=== PATIENT | male | born 1945 | race Caucasian/White ===

== ENCOUNTER → 2024-04-01 | Outpatient (CLI) | payer OTHER, MEDICAID, SELFPAY ==
[2024-04-01 10:46] LABS: Basophils # (Auto) 0.1 Thou/mm3 (0.0-0.2); Basophils % (Auto) 0 % (0-2.5); Eosinophils # (Auto) 0.4 Thou/mm3 (0.0-0.5); Eosinophils % (Auto) 2 % (0-10); Hematocrit 42.5 % (41.0-53.0); Hemoglobin 13.8 g/dL (13.5-16.0); Immature Granulocytes % (Auto) 0 % (0-0); Lymphocytes # (Auto) 19.1 Thou/mm3 (1.0-4.8); Lymphocytes % (Auto) 76 % (10-50); Mean Corpuscular HGB Conc 32.5 g/dl (31.0-37.0); Mean Corpuscular Hemoglobin 30.3 pg (25.0-35.0); Mean Corpuscular Volume 93 fL (80-100); Monocytes # (Auto) 0.7 Thou/mm3 (0.0-0.8); Monocytes % (Auto) 3 % (0-12); Neutrophils # (Auto) 4.7 Thou/mm3 (1.8-7.7); Neutrophils % (Auto) 19 % (37-80); Nucleated Red Blood Cell % 0 /100 WBC (0); Platelet Count 193 Thou/mm3 (140-440); RDW Standard Deviation 49.7 fL (35.1-43.9); Red Blood Count 4.56 Miln/mm3 (4.50-5.90)
[2024-04-01 11:06] LABS: Alanine Aminotransferase 35 U/L (10-49); Albumin, Serum 4.5 gm/dL (3.4-4.8); Alkaline Phosphatase 104 U/L (46-116); Anion Gap 3 (7-16); Aspartate Amino Transferase 34 U/L (0-34); BUN/Creatinine Ratio 18 Ratio (12-20); Bilirubin,Total 0.9 mg/dL (0.3-1.2); Blood Urea Nitrogen 21 mg/dL (9-23); Calcium 9.7 mg/dL (8.3-10.6); Calcium (Corrected) 9.7 mg/dL (8.5-10.1); Carbon Dioxide 35.6 mMol/L (20.0-31.0); Chloride 99 mMol/L (98-107); Creatinine (Component) 1.2 mg/dL (0.6-1.3); Globulin 2.2 gm/dL (2.3-3.5); Glucose 125 mg/dL (74-106); Osmolality,Calculated 279 (275-295); Potassium 3.2 mMol/L (3.4-5.1); Sodium 138 mMol/L (136-145); Total Protein 6.7 gm/dL (5.7-8.2); eGFR > 60 See Note
== END | disposition home or self-care (01) ==
LOC: COPL 09:10
PROVIDERS: PCP Family Medicine; Referring Provider Specialist; Visit Provider Specialist
DX: C91.10 Chronic lymphocytic leukemia of B-cell type not having achieved remission (principal)
CPT/HCPCS: 36415; 80053; 85025

== ENCOUNTER → 2024-07-07 | Outpatient (CLI) | payer MEDICARE, SELFPAY ==
[2024-07-07 09:36] LABS: Basophils # (Auto) 0.1 Thou/mm3 (0.0-0.2); Basophils % (Auto) 0 % (0-2.5); Eosinophils # (Auto) 0.3 Thou/mm3 (0.0-0.5); Eosinophils % (Auto) 1 % (0-10); Hematocrit 41.2 % (41.0-53.0); Hemoglobin 13.4 g/dL (13.5-16.0); Immature Granulocytes % (Auto) 0 % (0-0); Immature Granulocytes Auto 0.08 Thou/mm3 (0.00-0.00); Lymphocytes # (Auto) 15.8 Thou/mm3 (1.0-4.8); Lymphocytes % (Auto) 72 % (10-50); Mean Corpuscular HGB Conc 32.5 g/dl (31.0-37.0); Mean Corpuscular Hemoglobin 29.7 pg (25.0-35.0); Mean Corpuscular Volume 91 fL (80-100); Monocytes # (Auto) 0.7 Thou/mm3 (0.0-0.8); Monocytes % (Auto) 3 % (0-12); Neutrophils # (Auto) 5.1 Thou/mm3 (1.8-7.7); Neutrophils % (Auto) 23 % (37-80); Nucleated Red Blood Cell % 0 /100 WBC (0); Platelet Count 184 Thou/mm3 (140-440); RDW Standard Deviation 48.7 fL (35.1-43.9); Red Blood Count 4.51 Miln/mm3 (4.50-5.90); White Blood Count 22.1 Thou/mm3 (3.8-10.6)
[2024-07-07 11:11] LABS: Path Review Blood Smear Sent to Pathologist
== END | disposition home or self-care (01) ==
LOC: COPL 08:47
PROVIDERS: PCP Family Medicine; Referring Provider Specialist; Visit Provider Specialist
DX: C91.10 Chronic lymphocytic leukemia of B-cell type not having achieved remission (principal)
CPT/HCPCS: 36415; 85025

== ENCOUNTER 2024-09-28 09:53 | Day surgery (SDC) | payer MEDICARE, MEDICAID, SELFPAY ==
[2024-09-27 10:04] LABS: Basophils # (Auto) 0.1 Thou/mm3 (0.0-0.2); Basophils % (Auto) 1 % (0-2.5); Eosinophils # (Auto) 0.3 Thou/mm3 (0.0-0.5); Eosinophils % (Auto) 2 % (0-10); Hematocrit 42.8 % (41.0-53.0); Hemoglobin 13.8 g/dL (13.5-16.0); Immature Granulocytes % (Auto) 0 % (0-0); Immature Granulocytes Auto 0.06 Thou/mm3 (0.00-0.00); Lymphocytes # (Auto) 12.6 Thou/mm3 (1.0-4.8); Lymphocytes % (Auto) 68 % (10-50); Mean Corpuscular HGB Conc 32.2 g/dl (31.0-37.0); Mean Corpuscular Hemoglobin 29.1 pg (25.0-35.0); Mean Corpuscular Volume 90 fL (80-100); Monocytes # (Auto) 0.6 Thou/mm3 (0.0-0.8); Monocytes % (Auto) 3 % (0-12); Neutrophils # (Auto) 4.7 Thou/mm3 (1.8-7.7); Neutrophils % (Auto) 26 % (37-80); Nucleated Red Blood Cell % 0 /100 WBC (0); Platelet Count 166 Thou/mm3 (140-440); RDW Standard Deviation 48.2 fL (35.1-43.9); Red Blood Count 4.74 Miln/mm3 (4.50-5.90); White Blood Count 18.4 Thou/mm3 (3.8-10.6)
[2024-09-27 10:31] LABS: INR 1.1 (0.9-1.3); Partial Thromboplastin Time 27.3 Seconds (22.0-36.0); Prothrombin Time 11.9 Seconds (9.0-12.2)
[2024-09-27 11:15] LABS: Anion Gap 11 (7-16); BUN/Creatinine Ratio 16 Ratio (12-20); Blood Urea Nitrogen 19 mg/dL (9-23); Calcium 9.2 mg/dL (8.3-10.6); Carbon Dioxide 31.9 mMol/L (20.0-31.0); Chloride 99 mMol/L (98-107); Creatinine (Component) 1.2 mg/dL (0.6-1.3); Glucose 157 mg/dL (74-106); Osmolality,Calculated 288 (275-295); Potassium 3.4 mMol/L (3.4-5.1); Sodium 142 mMol/L (136-145); eGFR > 60 See Note
[2024-09-28] VITALS (19 sets, daily range): BP systolic 115–170; BP diastolic 60–120; PULSE 72–95; RESP 14–20; TEMP 36.6–36.8; O2SAT 93–98
[2024-09-28] MEDS: LOSARTAN POTASSIUM 25 MG TABLET 100 MG PO (14:49)
[2024-09-28] MEDS: METOPROLOL TARTRATE 25 MG TABLET 50 MG PO (14:49)
--- NOTE | 2024-09-28 19:34 | PC.NURSE ---
1355 patient is awake, alert, breathing unlabored, s/p LHC with PCI, dressing to right groin dry with no bleeding or hematoma, arterial sheath has been removed in laboratory coordinator OR. Report received from Jourdan KHAN, patient to recover for 5 hours. Ok to continue aspirin and plavix tomorrow, stop eliquis. Metoprolol and losartan home medications order by MD to give now post procedure in laboratory coordinator. 1511 Carol Ann (daughter) called pharmacy, plavix has been delivered to patient's house by pharmacy 4 days ago. Patient aware he needs to start taking plavix and aspirin 81mg tomorrow. 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
--- NOTE | 2024-10-01 13:08 | ESOP_ITS ---
RE: SHILA PHILLIP : 1945 DATE OF OPERATION: 09/28/2024 PROCEDURE PERFORMED: 1. Diagnostic left heart cardiac catheterization, selective coronary angiogram, left ventricular angiogram, bypass graft angiogram, CPT 70757. 2. Selective cannulation of internal mammary artery, CPT 24935. 3. PCI/PTCA stent placement of proximal left circumflex artery, placement of drug-eluting stent 4.0 x 15 mm [place], Medtronic stent, preprocedure stenosis 95% and postprocedure stenosis 0%, CPT 62939. 4. Conscious sedation, 1 hour duration. 5. Ultrasound-guided access, right femoral artery. DIAGNOSES: Coronary artery disease, status post bypass graft surgery, recurrent chest pain, shortness of breath, and abnormal nuclear stress test. HISTORY AND INDICATIONS: The patient is an 79-year-old male with a past medical history of coronary artery disease, status post bypass graft surgery, hypertension, has been having recurrent shortness of breath with chest pain, cardiac stress test with nuclear scan showed inferolateral ischemia, hence coronary angiogram was recommended to assess the patient is a candidate for intervention and revascularization. DESCRIPTION OF PROCEDURE: The patient was brought to cardiac catheterization laboratory where he was given 2 mg of Versed for sedation. Right femoral approach was taken. Right femoral artery was cannulated by micropuncture technique and 6-Finnish sheath was introduced. Selective right and left coronary angiogram performed by technique, FR4 and FL4 diagnostic catheter. Left internal mammary artery angiogram performed by FR4 diagnostic catheter. Left ventricular angiogram performed. Subsequently, vein bypass graft to the RCA cannulated by FR4 diagnostic catheter. Bypass graft angiogram performed. The patient tolerated the procedure well. No complications. Coronary angiogram showed following findings. Right coronary artery is large and dominant showed evidence of mild to moderate plaque in the proximal and mid segment. Distal vessel appears unremarkable. There is a graft to distal PDA appears to be widely patent. Vein graft is patent. Left coronary artery system. Left main coronary artery is normal. Left anterior descending artery occluded in the mid and proximal segment. Distal left anterior descending artery is visualized by CARDENSA. CARDENAS to LAD is widely patent with excellent filling of mid and distal left anterior descending artery. Left circumflex artery, [place] vessel, does not have any grafts showed a 95% stenosis of the proximal circumflex artery, culprit lesion. Cardiac catheterization showed following findings. Left ventricular pressure 163/5, EDP 19, aortic pressure 160/70. No gradient across the aortic valve. Left ventricular angiogram showed evidence of normal left ventricular wall motion, ejection fraction of 55%. Following diagnostic procedures, intervention was undertaken. The left main coronary artery was cannulated using 6-Finnish JL4 guiding catheter. The patient was given IV heparin. ACT was therapeutic. The patient was also loaded with aspirin and Brilinta. PTCA of the circumflex artery was performed using 0.014 run-through guidewire to cross the lesion. Euphora 2.5 x 12 mm balloon was used to cross the lesion. Subsequently, pre-dilation was performed by 2.5 mm balloon. Subsequently, a 4.0 x 15 mm length Medtronic Murray stent was deployed. The patient was given 600 mg of Plavix loading dose and aspirin was given prior to the procedure. Iliofemoral angiogram performed. Angioseal was attempted, failed to deploy, hence 30 mg protamine was given. Manual compression was obtained. Hemostasis was secured. The patient had no complications. SUMMARY OF FINDINGS: Severe multivessel coronary artery disease, evidence of widely patent graft to the posterior descending artery vein graft and also widely patent CARDENAS to LAD. [place] circumflex artery showed 95% stenosis, underwent successful stent placement with drug-eluting stent, 4.0 x 15 mm Medtronic Murray stent deployed successfully. Preprocedure stenosis was 95% and postprocedure stenosis was 0%, preprocedure MATHEW flow 2 and postprocedure MATHEW flow 3. No complications. Manual compression applied to secure hemostasis. DT: 10:01:30 TT: 11:45:00 Ref: [id number] - TID: [id number]
== END 2024-09-28 19:22 | disposition home or self-care (01) ==
PROVIDERS: PCP Family Medicine; Referring Provider Internal Medicine Cardiovascular Disease; Visit Provider Internal Medicine Cardiovascular Disease
PROC: (CPT 93459; principal; 2024-09-28 11:30)
DX: I25.119 Atherosclerotic heart disease of native coronary artery with unspecified angina pectoris (principal); Z95.1 Presence of aortocoronary bypass graft; I10 Essential (primary) hypertension; Z01.810 Encounter for preprocedural cardiovascular examination
CPT/HCPCS: 93459; 36216; C9600; 36415; 80048; 85025; 85347; 85610; 85730; 99152; 99153; A4649; A4699; C1725; C1760; C1769; C1874; C1887; C1894; J0171; J0360; J0461; J1643; J2250; J2310; J2371; J2720; J3010; J3490; Q9967; A9270; J1920

== ENCOUNTER → 2024-10-07 | Outpatient (CLI) | payer MEDICARE, MEDICAID, SELFPAY ==
[2024-10-07 09:42] LABS: Basophils # (Auto) 0.1 Thou/mm3 (0.0-0.2); Basophils % (Auto) 0 % (0-2.5); Eosinophils # (Auto) 0.4 Thou/mm3 (0.0-0.5); Eosinophils % (Auto) 2 % (0-10); Hematocrit 40.3 % (41.0-53.0); Hemoglobin 13.2 g/dL (13.5-16.0); Immature Granulocytes % (Auto) 0 % (0-0); Immature Granulocytes Auto 0.08 Thou/mm3 (0.00-0.00); Lymphocytes # (Auto) 13.1 Thou/mm3 (1.0-4.8); Lymphocytes % (Auto) 74 % (10-50); Mean Corpuscular HGB Conc 32.8 g/dl (31.0-37.0); Mean Corpuscular Hemoglobin 29.7 pg (25.0-35.0); Mean Corpuscular Volume 91 fL (80-100); Monocytes # (Auto) 0.7 Thou/mm3 (0.0-0.8); Monocytes % (Auto) 4 % (0-12); Neutrophils # (Auto) 3.5 Thou/mm3 (1.8-7.7); Neutrophils % (Auto) 19 % (37-80); Nucleated Red Blood Cell % 0 /100 WBC (0); Platelet Count 189 Thou/mm3 (140-440); RDW Standard Deviation 49.1 fL (35.1-43.9); Red Blood Count 4.45 Miln/mm3 (4.50-5.90); White Blood Count 17.8 Thou/mm3 (3.8-10.6)
[2024-10-07 09:43] LABS: Glucose Estimated Average 140 mg/dL (80-131); Hemoglobin A1C 6.5 % Hgb (4.8-6.0)
[2024-10-07 09:51] LABS: Anion Gap 10 (7-16); BUN/Creatinine Ratio 16 Ratio (12-20); Blood Urea Nitrogen 19 mg/dL (9-23); Calcium 9.6 mg/dL (8.3-10.6); Carbon Dioxide 32.3 mMol/L (20.0-31.0); Cardiac Risk Estimate 5.9 RATIO (4.0-6.7); Chloride 100 mMol/L (98-107); Cholesterol 148 mg/dL (132-200); Creatinine (Component) 1.2 mg/dL (0.6-1.3); Glucose 98 mg/dL (74-106); HDL Cholesterol 25 mg/dL (40-60); LDL Cholesterol,Calculated 50 mg/dL (0-130); Osmolality,Calculated 285 (275-295); Potassium 3.3 mMol/L (3.4-5.1); Sodium 142 mMol/L (136-145); Triglycerides 365 mg/dL (30-150); eGFR > 60 See Note
== END | disposition home or self-care (01) ==
LOC: COPL 08:27
PROVIDERS: PCP Family Medicine; Referring Provider Specialist; Visit Provider Specialist
DX: C91.10 Chronic lymphocytic leukemia of B-cell type not having achieved remission (principal); E11.42 Type 2 diabetes mellitus with diabetic polyneuropathy; I25.10 Atherosclerotic heart disease of native coronary artery without angina pectoris
CPT/HCPCS: 36415; 80048; 80061; 82043; 82570; 83036; 85025

== ENCOUNTER → 2025-01-03 | Outpatient (CLI) | payer MEDICARE, MEDICAID, SELFPAY ==
[2025-01-03 09:00] LABS: Basophils # (Auto) 0.1 Thou/mm3 (0.0-0.2); Basophils % (Auto) 1 % (0-2.5); Eosinophils # (Auto) 0.4 Thou/mm3 (0.0-0.5); Eosinophils % (Auto) 2 % (0-10); Hematocrit 42.3 % (41.0-53.0); Hemoglobin 13.5 g/dL (13.5-16.0); Immature Granulocytes Auto 0.04 Thou/mm3 (0.00-0.00); Lymphocytes # (Auto) 12.8 Thou/mm3 (1.0-4.8); Lymphocytes % (Auto) 75 % (10-50); Mean Corpuscular HGB Conc 31.9 g/dl (31.0-37.0); Mean Corpuscular Hemoglobin 29.5 pg (25.0-35.0); Mean Corpuscular Volume 92 fL (80-100); Monocytes # (Auto) 0.6 Thou/mm3 (0.0-0.8); Monocytes % (Auto) 4 % (0-12); Neutrophils # (Auto) 3.3 Thou/mm3 (1.8-7.7); Neutrophils % (Auto) 19 % (37-80); Nucleated Red Blood Cell # 0.00 Thou/mm3 (0.00-0.00); Nucleated Red Blood Cell % 0 /100 WBC (0); Platelet Count 173 Thou/mm3 (140-440); RDW Standard Deviation 51.1 fL (35.1-43.9); Red Blood Count 4.58 Miln/mm3 (4.50-5.90); White Blood Count 17.2 Thou/mm3 (3.8-10.6)
== END | disposition home or self-care (01) ==
LOC: COPL 07:39
PROVIDERS: PCP Family Medicine; Referring Provider Specialist; Visit Provider Specialist
DX: C91.10 Chronic lymphocytic leukemia of B-cell type not having achieved remission (principal)
CPT/HCPCS: 36415; 85025

== ENCOUNTER → 2025-03-07 | Outpatient (CLI) | payer MEDICARE, MEDICAID, SELFPAY ==
[2025-03-07 09:33] LABS: Basophils # (Auto) 0.1 Thou/mm3 (0.0-0.2); Basophils % (Auto) 0 % (0-2.5); Eosinophils # (Auto) 0.2 Thou/mm3 (0.0-0.5); Eosinophils % (Auto) 1 % (0-10); Hematocrit 40.2 % (41.0-53.0); Hemoglobin 13.6 g/dL (13.5-16.0); Immature Granulocytes Auto 0.14 Thou/mm3 (0.00-0.00); Lymphocytes # (Auto) 18.1 Thou/mm3 (1.0-4.8); Lymphocytes % (Auto) 68 % (10-50); Mean Corpuscular HGB Conc 33.8 g/dl (31.0-37.0); Mean Corpuscular Hemoglobin 30.6 pg (25.0-35.0); Mean Corpuscular Volume 91 fL (80-100); Monocytes # (Auto) 0.9 Thou/mm3 (0.0-0.8); Monocytes % (Auto) 3 % (0-12); Neutrophils # (Auto) 7.3 Thou/mm3 (1.8-7.7); Neutrophils % (Auto) 27 % (37-80); Nucleated Red Blood Cell # 0.00 Thou/mm3 (0.00-0.00); Nucleated Red Blood Cell % 0 /100 WBC (0); Platelet Count 161 Thou/mm3 (140-440); RDW Standard Deviation 49.0 fL (35.1-43.9); Red Blood Count 4.44 Miln/mm3 (4.50-5.90); White Blood Count 26.8 Thou/mm3 (3.8-10.6)
[2025-03-07 09:43] LABS: Anion Gap 9 (7-16); BUN/Creatinine Ratio 12 Ratio (12-20); Blood Urea Nitrogen 14 mg/dL (9-23); Calcium 10.0 mg/dL (8.3-10.6); Carbon Dioxide 35.8 mMol/L (20.0-31.0); Chloride 96 mMol/L (98-107); Creatinine (Component) 1.2 mg/dL (0.6-1.3); Glucose 66 mg/dL (74-106); Osmolality,Calculated 279 (275-295); Potassium 3.1 mMol/L (3.4-5.1); Sodium 141 mMol/L (136-145); eGFR > 60 See Note
[2025-03-07 09:45] LABS: Creatinine MALB Rnd Ur 57 mg/dL (30-125); Microalbumin Creat Ratio 5 mg/gCrea (<30); Microalbumin, Random Urine 3 mg/L (0-300)
[2025-03-07 10:14] LABS: Glucose Estimated Average 131 mg/dL (80-131); Hemoglobin A1C 6.2 % Hgb (4.8-6.0)
[2025-03-07 16:52] LABS: Path Review Blood Smear Sent to Pathologist
== END | disposition home or self-care (01) ==
LOC: COPL 08:32
PROVIDERS: PCP Family Medicine; Referring Provider Family Medicine; Visit Provider Specialist
DX: C91.10 Chronic lymphocytic leukemia of B-cell type not having achieved remission (principal); E11.628 Type 2 diabetes mellitus with other skin complications
CPT/HCPCS: 36415; 80048; 82043; 82570; 83036; 85025